=== PATIENT | male | born 1960 | race Caucasian/White ===

== ENCOUNTER 2017-12-21 05:39 | Inpatient (IN) | payer BC ==
[~2017-12-21] VITALS: Ht 188 cm; Wt 118.8 kg
[2017-12-21 06:43] VITALS: BP 143/89
[2017-12-21] MEDS ORDERED: BACITRACIN 50,000 UNIT ONE (06:44)
[2017-12-21] MEDS ORDERED: EPINEPHRINE 1 MG/ML, 1ML ONE (06:44)
[2017-12-21] MEDS ORDERED: THROMBIN 5,000 UNIT VIAL TP ONE (06:44)
[2017-12-21] MEDS ORDERED: BUPIVACAINE/PF 0.5% ONE (06:44)
[2017-12-21] MEDS ORDERED: NEOSPORIN OINT, 15GM ONE (06:44)
[2017-12-21] MEDS ORDERED: HYDR1TAB12 PO (06:52)
[2017-12-21] MEDS ORDERED: BUSP5TAB2 PO (06:52)
[2017-12-21] MEDS ORDERED: SUMA100T4 PO (06:52)
[2017-12-21] MEDS ORDERED: NAPR220C PO (06:52)
[2017-12-21] MEDS ORDERED: AMITRIPTYLINE (06:52)
[2017-12-21] MEDS ORDERED: GABAPENTIN 300 MG CAPSULE PO ONE (07:00)
[2017-12-21] MEDS ORDERED: ACETAMINOPHEN 500 MG TABLET PO ONE (07:00)
[2017-12-21] MEDS ORDERED: OxyconTIN ER 20 MG TAB.ER PO ONE (07:00)
[2017-12-21] MEDS ORDERED: METOCLOPRAMIDE 10MG TABLET PO ONE (07:00)
[2017-12-21] MEDS ORDERED: ONDANSETRON ODT 8 MG PO ONE (07:00)
[2017-12-21] MEDS ORDERED: FAMOTIDINE 20 MG TABLET PO ONE (07:00)
[2017-12-21] MEDS ORDERED: MIDAZOLAM 1 MG/ML, 2ML ONE (07:02)
[2017-12-21] MEDS ORDERED: FENTANYL PF 250 MCG/5ML ONE (07:03)
[2017-12-21] MEDS ORDERED: KETAMINE 10 MG/ML, 20ML ONE (07:09)
[2017-12-21] MEDS ORDERED: LACTATED RINGERS 1,000 ML IV SCH (07:25)
[2017-12-21] MEDS ORDERED: ALBUTEROL SULFATE 2.5 MG/3 ML NPPB PRN (09:30)
[2017-12-21] MEDS ORDERED: MEPERIDINE/PF 25MG/0.5ML IVPush PRN (09:30)
[2017-12-21] MEDS ORDERED: PROMETHAZINE 25 MG/ML, 1ML IV PRN (09:30)
[2017-12-21] MEDS ORDERED: MORPHINE SULFATE 4 MG/ML, 1ML IVPush PRN (09:30)
[2017-12-21] MEDS ORDERED: DIAZEPAM 5 MG/ML, 2ML IVPush PRN (09:30)
[2017-12-21] MEDS ORDERED: OXYcodone 5 MG/5 ML ORAL.SOL UDC PO PRN (09:30)
[2017-12-21] MEDS ORDERED: FENTANYL PF 100 MCG/2ML ONE (10:50)
[2017-12-21] MEDS: FENTANYL PF 100 MCG/2ML IV PRN ×3 (10:51→11:21)
[2017-12-21] MEDS ORDERED: PROPOFOL 10 MG/ML, 20ML ONE (11:12)
[2017-12-21] MEDS ORDERED: DEXAMETHASONE 4 MG/ML, 1ML ONE (11:12)
[2017-12-21] MEDS ORDERED: PHENYLEPHRINE 10 MG/ML ONE (11:12)
[2017-12-21] MEDS ORDERED: CEFAZOLIN 1,000 MG ONE (11:12)
[2017-12-21] MEDS ORDERED: ROCURONIUM 10 MG/ML,10ML ONE (11:12)
[2017-12-21] MEDS ORDERED: SUCCINYLCHOLINE 20 MG/ML, 10ML ONE (11:12)
[2017-12-21] MEDS ORDERED: DIPHENHYDRAMINE 50 MG/ML, 1ML IVPush PRN (13:00)
[2017-12-21] MEDS ORDERED: MAGNESIUM HYDROXIDE 8%, 30ML UDC PO PRN (13:00)
[2017-12-21] MEDS ORDERED: LABETALOL 5MG/ML, 20ML IV PRN (13:00)
[2017-12-21] MEDS ORDERED: METHOCARBAMOL 750 MG TABLET PO PRN (13:00)
[2017-12-21] MEDS ORDERED: BISACODYL 10 MG SUPP PR PRN (13:00)
[2017-12-21] MEDS ORDERED: ONDANSETRON 2MG/ML, 2ML IV PRN (13:00)
[2017-12-21] MEDS ORDERED: morphine SULFATE 10 MG/ML, 1ML IV PRN (13:00)
[2017-12-21] MEDS ORDERED: KETOROLAC 30 MG/1 ML IV ONE (13:00)
[2017-12-21 13:30] VITALS: BP 114/77
[2017-12-21] MEDS ORDERED: CEFAZOLIN PMX 1GM/50ML 50 ML IVPB SCH (15:30)
[2017-12-21] MEDS: NS + 20MEQ KCL 1,000 ML IV SCH (15:34)
[2017-12-21] MEDS: CEFAZOLIN 1,000 MG in DEXTROSE 5% 50 ML IVPB SCH ×2 (15:34→23:30)
[2017-12-21] MEDS: SUMATRIPTAN 50 MG TABLET PO PRN (15:38)
[2017-12-21] MEDS ORDERED: ONDANSETRON ODT 4 MG ONE (15:43)
[2017-12-21] MEDS: PROMETHAZINE 25 MG/ML, 1ML IM PRN (17:35)
[2017-12-21 19:00] VITALS: BP 132/89
[2017-12-21] MEDS: KETOROLAC 30 MG/1 ML IVPush SCH (19:00)
[2017-12-21] MEDS: BUSPIRONE 5 MG TABLET PO SCH ×2 (20:29→20:32)
[2017-12-21] MEDS: KETOROLAC 30 MG/1 ML IM SCH (20:29)
[2017-12-21 23:57] VITALS: BP 142/98
[2017-12-22] MEDS: PROMETHAZINE 25 MG/ML, 1ML IM PRN (01:19)
[2017-12-22] MEDS: HYDROcodone/APAP 5/325 TABLET PO PRN ×6 (01:20→20:29)
[2017-12-22] MEDS: SUMATRIPTAN 50 MG TABLET PO PRN (01:22)
[2017-12-22 03:50] VITALS: BP 128/83
[2017-12-22] MEDS: KETOROLAC 30 MG/1 ML IM SCH ×2 (04:30→12:04)
[2017-12-22] MEDS: KETOROLAC 30 MG/1 ML IVPush SCH ×2 (04:59→12:46)
[2017-12-22] MEDS: NS + 20MEQ KCL 1,000 ML IV SCH ×2 (04:59→15:40)
[2017-12-22 05:24] LABS: MEAN CORPUSCULAR HEMOGLOBIN 30.2 pg (27.5-34.5); MEAN CORPUSCULAR HGB CONC 34.2 g/dL (33.2-36.2); MEAN CORPUSCULAR VOLUME 88.3 fL (81-97); MEAN PLATELET VOLUME 8.5 fL (7.4-10.4); PLATELET COUNT 221 x10^3/uL (130-400); RED BLOOD COUNT 4.47 x10^6/uL (4.38-5.82); RED CELL DISTRIBUTION WIDTH 12.4 % (9.4-14.8)
[2017-12-22 05:35] LABS: ALBUMIN 3.2 g/dL (3.4-5.0); ANION GAP 8 mmol/L (5-15); CALCIUM 8.4 mg/dL (8.5-10.1); CHLORIDE 107 mmol/L (98-107); CREATININE 0.91 mg/dL (0.7-1.3)
[2017-12-22 05:47] LABS: BASOPHILS # (AUTO) 0.08 x10^3/uL (0-0.1); BASOPHILS % (AUTO) 1 % (0-1); EOSINOPHILS # (AUTO) 0.02 x10^3/uL (0-0.4); EOSINOPHILS % (AUTO) 0 % (1-7); LYMPHOCYTES # (AUTO) 1.52 x10^3/uL (1-3.4); LYMPHOCYTES % (AUTO) 10 % (22-44); MD SCAN; MONOCYTES # (AUTO) 0.97 x10^3/uL (0.2-0.8); MONOCYTES % (AUTO) 6 % (2-9); NEUTROPHILS # (AUTO) 13.14 x10^3/uL (1.8-6.8); NEUTROPHILS % (AUTO) 84 % (42-75)
[2017-12-22 08:16] VITALS: BP 137/78
[2017-12-22] MEDS: BUSPIRONE 5 MG TABLET PO SCH ×2 (09:00→21:00)
[2017-12-22] MEDS: GABAPENTIN 300 MG CAPSULE PO SCH ×3 (09:28→20:25)
[2017-12-22] MEDS: SENNA/DOCUSATE TABLET PO SCH (09:28)
[2017-12-22 14:04] VITALS: BP 120/77
[2017-12-22] MEDS: CYCLOBENZAPRINE 10 MG TABLET PO PRN (16:09)
[2017-12-22] MEDS ORDERED: NICOTINE 21 MG/24 HR PATCH.TD24 TD SCH (16:30)
[2017-12-22] MEDS ORDERED: MELOXICAM 15 MG TABLET PO SCH (17:00)
[2017-12-22 19:24] VITALS: BP 121/71
[2017-12-23] MEDS: HYDROcodone/APAP 5/325 TABLET PO PRN (00:18)
[2017-12-23] MEDS: CYCLOBENZAPRINE 10 MG TABLET PO PRN ×2 (00:18→08:33)
[2017-12-23 01:43] VITALS: BP 111/77
[2017-12-23] MEDS: OXYcodone/APAP 5/325MG TABLET PO PRN ×2 (04:28→08:33)
[2017-12-23] MEDS: NS + 20MEQ KCL 1,000 ML IV SCH (04:30)
[2017-12-23 06:06] LABS: BASOPHILS % (AUTO) 1 % (0-1); EOSINOPHILS # (AUTO) 0.12 x10^3/uL (0-0.4); EOSINOPHILS % (AUTO) 1 % (1-7); LYMPHOCYTES # (AUTO) 2.48 x10^3/uL (1-3.4); LYMPHOCYTES % (AUTO) 20 % (22-44); MD NO; MEAN CORPUSCULAR HEMOGLOBIN 30.5 pg (27.5-34.5); MEAN CORPUSCULAR HGB CONC 34.5 g/dL (33.2-36.2); MEAN CORPUSCULAR VOLUME 88.5 fL (81-97); MEAN PLATELET VOLUME 8.9 fL (7.4-10.4); MONOCYTES # (AUTO) 0.97 x10^3/uL (0.2-0.8); MONOCYTES % (AUTO) 8 % (2-9); NEUTROPHILS % (AUTO) 70 % (42-75); PLATELET COUNT 206 x10^3/uL (130-400); RED BLOOD COUNT 4.31 x10^6/uL (4.38-5.82); RED CELL DISTRIBUTION WIDTH 12.7 % (9.4-14.8)
[2017-12-23 06:41] VITALS: BP 110/72
[2017-12-23 07:21] VITALS: BP 120/82
[2017-12-23] MEDS: SENNA/DOCUSATE TABLET PO SCH (08:33)
[2017-12-23] MEDS: BUSPIRONE 5 MG TABLET PO SCH (08:33)
[2017-12-23] MEDS: GABAPENTIN 300 MG CAPSULE PO SCH (08:33)
[2017-12-23] MEDS ORDERED: OXYC-302 PO (10:11)
[2017-12-23] MEDS ORDERED: MELO7.5T5 PO (10:11)
[2017-12-23] MEDS ORDERED: GABA300C10 PO (10:12)
[2017-12-23] MEDS ORDERED: CYCL-259 PO (10:13)
[2017-12-23 12:07] VITALS: BP 105/70
== END 2017-12-23 12:20 | disposition home or self-care (01) | DRG 515 ==
LOC: OUT 05:39 → 4NOR 11:41 → OUT 12:19
PROVIDERS: ADMIT Neurological Surgery; ATTEND Neurological Surgery
PROC: 01NB0ZZ Release Lumbar Nerve, Open Approach (ICD-10-PCS; principal; 2017-12-22)
DX: M48.062 Spinal stenosis, lumbar region with neurogenic claudication (principal); T79.5XXA Traumatic anuria, initial encounter; X58.XXXA Exposure to other specified factors, initial encounter; S39.94XA Unspecified injury of external genitals, initial encounter; Y93.89 Activity, other specified; Y92.89 Other specified places as the place of occurrence of the external cause; F17.210 Nicotine dependence, cigarettes, uncomplicated; Y99.8 Other external cause status; Z83.3 Family history of diabetes mellitus; Z82.49 Family history of ischemic heart disease and other diseases of the circulatory system
CPT/HCPCS: 36415; 72100; 80048; 82040; 85025; J0171; J0690; J1100; J1885; J2250; J2550; J2704; J3010; J3480; J3490; Q0162; J0330; J2370; J7120